=== PATIENT | male | born 1960 | race Two or more races ===

== ENCOUNTER 2017-07-01 19:46 | Inpatient (IN) | payer OTHER ==
[~2017-07-01] VITALS: Ht 170.2 cm; Wt 95.7 kg
--- NOTE | 2017-07-01 19:50 | NUR ---
TO BED 3 A 55 YO MALE BIBSELF W C/O "DIZZINESS/CP/SOB X2 DAYS." UPON ARRIVAL TO ER, PATIENT IS AAOX3, PATIENT ALSO COMPLAINTS OF GENERALIZED WEAKNESS. NAD NOTED. BREATHING EVEN AND UNLABORED. NONDIAPHORETIC. PLACED ON CARDIAC AND VS MONITORING. GOWNED. COMFORT MEAURES RENDERED. STAGE HAND NICKYII AT BEDSIDE TO FAN.
--- NOTE | 2017-07-01 20:10 | NUR ---
STARTED A SALINE LOCK ON THE RAC G18, BLOOD DRAWN AND SENT TO LAB.
[2017-07-01 20:16] LABS: BASOPHILS # (AUTO) 0.1 /CMM (0.0-0.2); BASOPHILS % (AUTO) 1.3 % (0.0-2.0); EOSINOPHILS # (AUTO) 0.1 /CMM (0.0-0.7); EOSINOPHILS % (AUTO) 1.5 % (0.0-6.0); HEMATOCRIT 43 % (39-51); HEMOGLOBIN 14.4 g/dL (13.5-17.5); LYMPHOCYTES # (AUTO) 3.7 /CMM (0.8-4.8); LYMPHOCYTES % (AUTO) 38.6 % (20.0-44.0); MEAN CORPUSCULAR HEMOGLOBIN 31 PG (26.0-33.0); MEAN CORPUSCULAR HGB CONC 34 g/dl (31.0-36.0); MEAN CORPUSCULAR VOLUME 92 fL (80-96); MONOCYTES # (AUTO) 0.8 /CMM (0.1-1.30); MONOCYTES % (AUTO) 7.9 % (2.0-12.0); NEUTROPHILS % (AUTO) 50.7 % (43.0-81.0); PLATELET COUNT (AUTO) 232 /CMM (150-450); RDW COEFFICIENT OF VARIATION 11.9 (11.5-15.0); RED BLOOD CELL COUNT(AUTO) 4.65 MIL/uL (4.5-6.0); WHITE BLOOD COUNT (AUTO) 9.7 K/uL (4.3-11.0)
--- NOTE | 2017-07-01 20:23 | NUR ---
[employer] CALLED FOR TELE BED.
[2017-07-01 20:27] LABS: CALCIUM, SERUM 8.4 mg/dL (8.5-10.1); CARBON DIOXIDE 30 mmol/L (21-32); CHLORIDE 102 mmol/L (98-107); CREATININE 0.9 mg/dL (0.6-1.3); GLUCOSE 89 mg/dL (74-106); POTASSIUM 4.1 mmol/L (3.5-5.1); SODIUM SERUM 136 mmol/L (136-145); UREA NITROGEN, BLOOD 21 mg/dL (7-18)
[2017-07-01 20:30] LABS: INR 1.15 (0.87-1.13); PROTHROMBIN TIME 12.1 SECS (9.5-12.7)
--- NOTE | 2017-07-01 20:32 | NUR ---
ASSIGNED [facility] BED 316-2
[2017-07-01 20:36] LABS: TROPONIN I < 0.017 ng/mL (0.00-0.056)
--- NOTE | 2017-07-01 21:08 | NUR ---
REPORT GIVEN TO HOSEA FOR ADMISSION AND KASSIDY.
[2017-07-01 21:30] VITALS: BP_SYST 159; BP_SYST 164; BP_DIAS 100; BP_DIAS 89
--- NOTE | 2017-07-01 21:30 | NUR ---
Male Patient admitted to room 316. Alert and orientated, Familyat his side and very concerned and supporteive. States no chestpain, UNLESS, I cough. Noted when he did cough he'd put his hands to his chest and cough and it was productive. Lungs via auscultation clear, CXR showed atelectsisi. HOB up for comfort. MD SARKAR called and orders rcieved and started the Levoqiun IVPB with explaination to the patient and his who is at the bedside.
--- NOTE | 2017-07-01 21:35 | NUR ---
TRANSFERRED PATIENT TO TELE BED 316-2 VIA ALS PROTOCOL, NO INCIDENT NOTED. FAMILY AT BEDSIDE. ENDORSED TO HOSEA OSEGUERA.
--- NOTE | 2017-07-01 23:55 | NUR ---
RN NOTES METOPROLOL AND AMLODIPINE GIVEN DUE TO ELEVATED BP.
[2017-07-02] VITALS: BP 153/95
[2017-07-02 04:00] VITALS: BP 134/88
[2017-07-02 04:49] LABS: BASOPHILS % (AUTO) 0.6 % (0.0-2.0); EOSINOPHILS # (AUTO) 0.1 /CMM (0.0-0.7); EOSINOPHILS % (AUTO) 1.5 % (0.0-6.0); HEMATOCRIT 43 % (39-51); HEMOGLOBIN 14.6 g/dL (13.5-17.5); LYMPHOCYTES # (AUTO) 2.7 /CMM (0.8-4.8); LYMPHOCYTES % (AUTO) 37.8 % (20.0-44.0); MEAN CORPUSCULAR HEMOGLOBIN 32 PG (26.0-33.0); MEAN CORPUSCULAR HGB CONC 34 g/dl (31.0-36.0); MEAN CORPUSCULAR VOLUME 93 fL (80-96); MONOCYTES # (AUTO) 0.5 /CMM (0.1-1.30); MONOCYTES % (AUTO) 7.4 % (2.0-12.0); NEUTROPHILS # (AUTO) 3.8 /CMM (1.8-8.9); NEUTROPHILS % (AUTO) 52.7 % (43.0-81.0); PLATELET COUNT (AUTO) 205 /CMM (150-450); RDW COEFFICIENT OF VARIATION 12.9 (11.5-15.0); RED BLOOD CELL COUNT(AUTO) 4.58 MIL/uL (4.5-6.0); WHITE BLOOD COUNT (AUTO) 7.2 K/uL (4.3-11.0)
[2017-07-02 05:05] LABS: CALCIUM, SERUM 8.7 mg/dL (8.5-10.1); CREATININE 0.8 mg/dL (0.6-1.3); POTASSIUM 3.9 mmol/L (3.5-5.1)
[2017-07-02 05:25] LABS: THYROID STIMULATING HORMONE 3.527 uIU/mL (0.358-3.74)
--- NOTE | 2017-07-02 06:30 | NUR ---
RN NOTES PATIENT IN BED, RESTING COMFORTABLY, NO SOB,RESPIRATION EVEN AND UNLABORED, NO COMPLAIN OF CHEST PAIN, NOTED INTERMITTENT COUGHING, NEEDS ATTENDED, ALL DUE MEDICATIONS GIVEN, CALL WITHIN REACH, AT THE BEDSIDE.
--- NOTE | 2017-07-02 07:35 | NUR ---
clerical assistant Initial Notes: Received patient resting in bed. Patient alert oriented x4. Patient resting in bed with non-labored breathing noted. patient on room air. No facial grimacing noted. Patient on Telemetry monitoring with Afib noted. Bed in lowest locked position. Call light within reach. Will continue to monitor.
[2017-07-02 08:00] VITALS: BP_SYST 151; BP_SYST 158; BP_DIAS 117; BP_DIAS 92
[2017-07-02] MEDS ORDERED: LEVO500T15 PO (08:25)
--- NOTE | 2017-07-02 13:18 | NUR ---
RN NOTES: Contacted ultrasound for scheduled echocardiogram and left a message at 1000. Called now twice. No response
[2017-07-02 16:00] VITALS: BP 127/85
--- NOTE | 2017-07-02 17:43 | NUR ---
RN Closing Notes: Patient discharged home per MD orders. Patient stable. Vital signs within normal range. Non-labored breathing noted. Peripheral IV taken out. Valuables accounted for. Patient educated on medications. Prescription given to patient and faxed to his pharmacy. Echocardiogram done today. However, patient wished to leave before results are available. Risks and benefits are explained. Patient refused. Patient educated on contacting medical records to obtain results and to follow up with primary care provider within a week. Flu vaccine not administered because it is out of season. Pneumococcal vaccine not administered because patient is younger than 65 years old. Patient left stable with via private car.
== END 2017-07-02 17:45 | disposition home or self-care (01) | DRG 139 ==
LOC: ER 19:50 → TELE 20:53 → MED 07-02 09:43
PROVIDERS: ADMIT Internal Medicine; ATTEND Internal Medicine
DX: J15.9 Unspecified bacterial pneumonia (principal); I48.2 Chronic atrial fibrillation; I10 Essential (primary) hypertension; E78.5 Hyperlipidemia, unspecified; N40.0 Benign prostatic hyperplasia without lower urinary tract symptoms; Z87.891 Personal history of nicotine dependence; J20.9 Acute bronchitis, unspecified; R07.9 Chest pain, unspecified
CPT/HCPCS: 36415; 71010-TC; 80048-TC; 80061-TC; 83880; 84443-TC; 84484-TC; 85025-TC; 85378-TC; 85730-TC; 87081-TC; 93307-TC; A4216; J1956; J7050

== ENCOUNTER 2019-11-17 20:51 | Emergency (ER) | payer OTHER ==
[~2019-11-17] VITALS: Ht 162.6 cm; Wt 74.8 kg
[~2019-11-17 20:51] MED LIST: LEVO500T75 PO
--- NOTE | 2019-11-17 20:51 | NUR ---
CAME IN FOR R EYE PAIN WITH REDNESS X3 HRS S/P GRINDING A METAL SCREW, TO ER BED 5, HOOKED TO MONITPR, AWAITING MD CHAVIRA.
--- NOTE | 2019-11-17 21:08 | NUR ---
BOTH EYE VISUAL ACUITY: 20/30
[2019-11-17] MEDS ORDERED: FLUORESCEIN SODIUM OPHTH 1 EA STRIP ONE (21:17)
[2019-11-17] MEDS ORDERED: FLUORESCEIN SODIUM OPHTH 1 EA STRIP OP ONE (21:30)
[2019-11-17] MEDS ORDERED: TETRAcaine 5 ML BOTTLE EACHEYE ONE (21:30)
--- NOTE | 2019-11-17 21:41 | NUR ---
Patient discharged to home in stable condition. Written and verbal after care instructions given. Patient verbalizes understanding of instruction.
[2019-11-17 21:42] VITALS: BP 142/80
== END 2019-11-17 21:42 | disposition home or self-care (01) ==
LOC: ER 20:55
DX: T15.91XA Foreign body on external eye, part unspecified, right eye, initial encounter (principal); H57.11 Ocular pain, right eye; I10 Essential (primary) hypertension; I48.91 Unspecified atrial fibrillation; K21.9 Gastro-esophageal reflux disease without esophagitis; F17.200 Nicotine dependence, unspecified, uncomplicated; Z79.899 Other long term (current) drug therapy; W45.8XXA Other foreign body or object entering through skin, initial encounter; Y93.89 Activity, other specified; Y92.89 Other specified places as the place of occurrence of the external cause; Y99.8 Other external cause status